=== PATIENT | female | born 1995 | race American Indian/Alaskan Native ===

== ENCOUNTER 2018-11-12 20:38 | Emergency (ER) | payer OTHER, MEDICAID ==
[2018-11-12 21:10] VITALS: BP 115/66
[2018-11-12 21:46] LABS: Bacteria,Urine 1+ /HPF (Negative); Bilirubin,Urine NEG (Negative); Blood,Urine NEG (Negative); Color,Urine Yellow (Yellow); Mucus,Urine 2+ /HPF; Protein,Urine <15 mg/dL mg/dL (Negative); Urobilinogen,Urine < 2.0 mg/dL (<2.0)
[2018-11-12 21:49] LABS: HCG Qualitative,Urine Negative (Negative)
[2018-11-12] MEDS ORDERED: ZOFRAN ODT PO ONE (22:59)
--- NOTE | 2018-11-12 23:37 | Emergency Department Report ---
ED Female HPI - General Chief complaint: Abdominal Pain Stated complaint: MIGRANE,NOSE BLEED,PELVIS PAIN Time Seen by Provider: 11/12/18 22:49 Source: patient Mode of arrival: Ambulatory Limitations: No Limitations - History of Present Illness Initial comments: 23-year-old female comes in stating she has abdominal pain nausea vomiting headache with nose bleeding for the past 2 weeks. Patient reports she had a headache yesterday took Excedrin and has not returned. She reports of nosebleed last week none this week. Patient reports of nausea and pelvic cramping 2 weeks. Patient reports her last semester. Was 09/13/2018. Patient denies any vaginal discharge she denies any vomiting today she does admit to nausea. Patient does have a primary care provider Dr. Olsen she reports she did not follow-up with him at work and could not take off. MD Complaint: pelvic pain Radiation: suprapubic Severity: mild Quality: cramping Consistency: intermittent Improves with: medication Worsens with: none Are you Now?: No Last Menstrual Period: 09/13/18 EDC: 06/20/19 Associated Symptoms: nausea/vomiting. denies: vaginal discharge, vaginal bleeding - Related Data Sexually active: Yes Previous Rx's Medication Instructions Recorded Last Taken Type Nitrofurantoin Monohyd/M-Cryst 100 mg PO BID #14 capsule 11/13/18 Unknown Rx [Macrobid 100 mg Capsule] Allergies Allergy/AdvReac Type Severity Reaction Status Date / Time No Known Allergies Allergy Unverified 11/12/18 21:14 ED Review of Systems ROS: Stated complaint: MIGRANE,NOSE BLEED,PELVIS PAIN Other details as noted in HPI Comment: All other systems reviewed and negative Gastrointestinal: nausea Genitourinary: denies: urgency, dysuria, discharge Musculoskeletal: denies: back pain, joint swelling, arthralgia Neurological: headache (yesterday) ED Past Medical Hx - Social History Smoking Status: Never Smoker Substance Use Type: Alcohol, Marijuana - Medications Home Medications: Home Medications Medication Instructions Recorded Confirmed Last Taken Type Nitrofurantoin Monohyd/M-Cryst 100 mg PO BID #14 capsule 11/13/18 Unknown Rx [Macrobid 100 mg Capsule] ED Physical Exam - General Limitations: No Limitations General appearance: alert, in no apparent distress - Head Head exam: Present: atraumatic, normocephalic - Eye Eye exam: Present: EOMI - ENT ENT exam: Present: mucous membranes moist - Respiratory Respiratory exam: Present: normal lung sounds bilaterally. Absent: respiratory distress - Cardiovascular Cardiovascular Exam: Present: regular rate, normal rhythm. Absent: systolic murmur, diastolic murmur, rubs, gallop - GI/Abdominal GI/Abdominal exam: Present: soft, normal bowel sounds - Back Exam Back exam: Present: normal inspection - Neurological Exam Neurological exam: Present: alert, oriented X3 - Psychiatric Psychiatric exam: Present: normal affect, normal mood - Skin Skin exam: Present: warm, dry, intact, normal color. Absent: rash ED Course Vital Signs 11/12/18 21:04 Temperature 98 F Pulse Rate 77 Blood Pressure 115/66 O2 Sat by Pulse 99 Oximetry Critical care attestation.: If time is entered above; I have spent that time in minutes in the direct care of this critically ill patient, excluding procedure time. ED Disposition Clinical Impression: Negative test UTI (urinary tract infection) Qualifiers: Urinary tract infection type: site unspecified Hematuria presence: without hematuria Qualified Code(s): N39.0 - Urinary tract infection, site not specified Disposition: DC-01 TO HOME OR SELFCARE Is pt being admited?: No Does the pt Need Aspirin: No Condition: Stable Instructions: Abdominal Pain (ED) Additional Instructions: Please complete antibiotics as prescribed. Please increase her fluid intake. Follow up with her primary care provider. Your test was negative. Prescriptions: Nitrofurantoin Monohyd/M-Cryst [Macrobid 100 mg Capsule] 100 mg PO BID #14 capsule Referrals: Your,Provider [Other] - 3-5 Days
== END 2018-11-13 00:25 | disposition home or self-care (01) ==
LOC: ED 20:38
DX: N39.0 Urinary tract infection, site not specified (principal); Z32.02 Encounter for pregnancy test, result negative; G43.909 Migraine, unspecified, not intractable, without status migrainosus; R11.2 Nausea with vomiting, unspecified; R04.0 Epistaxis
CPT/HCPCS: 36415; 81001; 81025; 84702; 87076; 87086; 87186; 99283; Q0162